=== PATIENT | female | born 1965 | race Hispanic/Latino ===

== ENCOUNTER 2019-07-11 10:54 | Outpatient (CLI) | payer OTHER ==
--- NOTE | 2019-07-11 11:38 | MMO ---
Bilateral MAMMO Bilat Screen DDI. CLINICAL HISTORY: Patient is 54 years old and is seen for screening. The patient has no family history of breast cancer. The patient has no personal history of cancer. VIEWS: The views performed were: bilateral craniocaudal and bilateral mediolateral oblique. FILMS COMPARED: The present examination has been compared to prior imaging studies performed at [facility] on 03/25/2011, 10/09/2012, 09/29/2014 and 10/05/2015. This study has been interpreted with the assistance of computer-aided detection. MAMMOGRAM FINDINGS: The breasts are heterogeneously dense, which could obscure a lesion on mammography. There is a questionable mass in the right mid breast on MLO view. In the left breast, there are no suspicious masses, calcifications or areas of architectural distortion. IMPRESSION: FINDING IN THE RIGHT BREAST REQUIRES ADDITIONAL EVALUATION. SPOT COMPRESSION IS RECOMMENDED. AN ULTRASOUND EXAM IS RECOMMENDED. ADDITIONAL IMAGING. ACR BI-RADS Category 0 - Incomplete: Need additional imaging evaluation. [facility] will notify the patient of the need for additional imaging services. MAMMOGRAPHY NOTE: 1. A negative mammogram report should not delay a biopsy if a dominant of clinically suspicious mass is present. 2. Approximately 10% to 15% of breast cancers are not detected by mammography. 3. Adenosis and dense breasts may obscure an underlying neoplasm. Reported by: AILIN RENDON MD Electonically Signed: [id number]
== END 2019-07-11 10:55 | disposition home or self-care (01) ==
LOC: BICMAMMO 10:54
PROVIDERS: ATTEND Family Medicine
DX: Z12.31 Encounter for screening mammogram for malignant neoplasm of breast (principal)
CPT/HCPCS: 77067

== ENCOUNTER 2019-07-12 12:40 | Outpatient (CLI) | payer OTHER ==
--- NOTE | 2019-07-12 13:27 | MMO ---
Right Breast MAMMO Unilat Diag DDI RT+DON. CLINICAL HISTORY: Patient is 54 years old and is seen for additional evaluation requested at current screening. The patient has no family history of breast cancer. The patient has no personal history of cancer. VIEWS: The views performed were: right mediolateral oblique spot compression with tomosynthesis and right mediolateral with tomosynthesis. FILMS COMPARED: The present examination has been compared to prior imaging studies performed at [facility] on 09/29/2014, 10/05/2015, 07/11/2019 and 07/12/2019. This study has been interpreted with the assistance of computer-aided detection. MAMMOGRAM FINDINGS: The breast is heterogeneously dense, which could obscure a lesion on mammography. There are no suspicious masses, suspicious calcifications, or new areas of architectural distortion. The asymmetry seen at screening mammography does not persist at additional imaging and sonography of this region is normal, compatible with superimposed tissue. IMPRESSION: THERE IS NO MAMMOGRAPHIC EVIDENCE OF MALIGNANCY. A ROUTINE FOLLOW-UP MAMMOGRAM IN 1 YEAR IS RECOMMENDED. THE RESULTS OF THIS EXAM WERE SENT TO THE PATIENT. ACR BI-RADS Category 1 - Negative MAMMOGRAPHY NOTE: 1. A negative mammogram report should not delay a biopsy if a dominant of clinically suspicious mass is present. 2. Approximately 10% to 15% of breast cancers are not detected by mammography. 3. Adenosis and dense breasts may obscure an underlying neoplasm. Reported by: DANIEL AWAD MD Electonically Signed: [id number]
--- NOTE | 2019-07-12 14:25 | ULT ---
LIMITED RIGHT BREAST ULTRASOUND: 07/12/19 PROVIDED CLINICAL HISTORY: Abnormal screening mammogram. FINDINGS: Limited sonographic interrogation was performed in the right breast in the region of mammographic con cern. The sonographic appearance of the breast tissue in this region is normal. IMPRESSION: BIRADS 1: Negative Routine annual screening mammography (for women over age 40)
== END 2019-07-12 12:41 | disposition home or self-care (01) ==
LOC: BICMAMMO 12:40
PROVIDERS: ATTEND Family Medicine
DX: N63.10 Unspecified lump in the right breast, unspecified quadrant (principal)
CPT/HCPCS: G0279

== ENCOUNTER 2021-01-21 09:55 | Outpatient (CLI) | payer OTHER | END 2021-01-21 09:56 | disposition home or self-care (01) | LOC: BICMAMMO 09:55 | PROVIDERS: ATTEND Family Medicine | DX: Z12.31 Encounter for screening mammogram for malignant neoplasm of breast (principal) | CPT/HCPCS: 77063; 77067 ==

== ENCOUNTER 2022-12-12 11:56 | Outpatient (CLI) | payer OTHER | END 2022-12-12 11:57 | disposition home or self-care (01) | LOC: BICMAMMO 11:56 | PROVIDERS: ATTEND Family Medicine | DX: Z12.31 Encounter for screening mammogram for malignant neoplasm of breast (principal) | CPT/HCPCS: 77063; 77067 ==